=== PATIENT | male | born 1985 | race Caucasian/White ===

== ENCOUNTER 2020-10-19 09:49 | Outpatient (CLI) | payer BC, SELFPAY ==
[2020-10-19 12:46] LABS: Hemoglobin A1C 5.3 % (<5.7)
[2020-10-19 12:56] LABS: ALT 38 U/L (16-63); AST 18 U/L (15-37); Albumin 3.8 g/dL (3.4-5.0); Alkaline Phosphatase 50 U/L (46-116); Anion Gap 8.4 mmol/L (3-11); BUN 19 mg/dL (7-18); Bilirubin, Total 0.8 mg/dL (0.2-1.0); CO2 27.6 mmol/L (21.0-32.0); CREATININE 1.1 mg/dL (0.70-1.30); Calcium 8.6 mg/dL (8.5-10.1); Calculated LDL 146 mg/dL (<100); Chloride 107 mmol/L (98-107); Cholesterol 226 mg/dL (<200); Glucose 99 mg/dL (74-106); HDL Cholesterol 35 mg/dL (40-60); Potassium 4.7 mmol/L (3.5-5.1); Sodium 143 mmol/L (136-145); TSH (W/Ref FT4) 1.99 uIU/mL (0.36-3.74); Total Protein 7.4 g/dL (6.4-8.2); Triglyceride 228 mg/dL (<150)
== END 2020-10-19 09:50 | disposition home or self-care (01) ==
LOC: LOS 09:50
PROVIDERS: PCP Nurse Practitioner Family; Referring Provider Nurse Practitioner Family; Visit Provider Nurse Practitioner Family
DX: Z00.00 Encounter for general adult medical examination without abnormal findings (principal); Z13.1 Encounter for screening for diabetes mellitus; Z13.220 Encounter for screening for lipoid disorders; Z13.29 Encounter for screening for other suspected endocrine disorder
CPT/HCPCS: 36415; 80053; 80061; 83036; 84443

== ENCOUNTER 2023-01-03 09:47 | Outpatient (CLI) | payer OTHER, SELFPAY ==
[2023-01-03 12:54] LABS: Calculated LDL 171 mg/dL (<100); Cholesterol 268 mg/dL (<200); HDL Cholesterol 41 mg/dL (40-60); Triglyceride 282 mg/dL (<150)
== END 2023-01-03 09:48 | disposition home or self-care (01) ==
LOC: LOS 09:48
PROVIDERS: PCP Nurse Practitioner Family; Referring Provider Nurse Practitioner Family; Visit Provider Nurse Practitioner Family
DX: E78.5 Hyperlipidemia, unspecified (principal)
CPT/HCPCS: 36415; 80061

== ENCOUNTER 2024-02-06 02:53 | Outpatient (CLI) | payer OTHER, SELFPAY ==
[2024-02-06 10:54] LABS: Calculated LDL 142 mg/dL (<100); Cholesterol 222 mg/dL (<200); HDL Cholesterol 42 mg/dL (40-60); Triglyceride 194 mg/dL (<150)
[2024-02-06 11:14] LABS: Hemoglobin A1C 5.3 % (<5.7)
== END 2024-02-06 02:54 | disposition home or self-care (01) ==
LOC: LBO 02:53
PROVIDERS: PCP Nurse Practitioner Family; Visit Provider Nurse Practitioner Family
DX: Z13.220 Encounter for screening for lipoid disorders (principal); Z13.1 Encounter for screening for diabetes mellitus
CPT/HCPCS: 36415; 80061; 83036